=== PATIENT | female | born 1950 | race Caucasian/White ===

== ENCOUNTER 2018-06-08 14:19 | Emergency (ER) | payer MEDICARE, MEDICAID ==
[~2018-06-08] VITALS: Ht 157.5 cm; Wt 85.0 kg
[~2018-06-08 14:19] MED LIST: TRAM50TA2 PO
[2018-06-08 14:23] VITALS: Ht 157.5 cm; Wt 85.0 kg
[2018-06-08] MEDS ORDERED: ONDANSETRON 4 MG INJ IV STA (16:17)
[2018-06-08] MEDS ORDERED: SOD CHLORIDE 0.9% 1,000 ML IV STA (16:17)
[2018-06-08] MEDS ORDERED: KETOROLAC 15 MG INJ IV STA (16:17)
--- NOTE | 2018-06-08 16:28 | ERD ---
ER Documentation Chief Complaint Chief Complaint HEADACHE X 1 MONTH ON AND OFF , VAG BLEED X 2 DAYS HPI 67 year old patient presents to the ED complaining of vaginal bleeding and headache. Patient states she suffers from similar type headaches throughout the past year. She has visited the ED before for the same complaint and received a CT which did not show hemorrhage or other significant acute abnormalities. She currently describes a pain of 6/10. She denies any change of vision, confusion, or any weakness. She also states that she has had abdominal and pelvic pain for the last 4 days. Yesterday she noted the toilet was red from what she believed was blood. She denies any blood in the urine, white or other colored vaginal discharge, new sexual partners, and vaginal pain. She also states that she has had some urinary frequency. She is postmenopausal. No other symptoms reported at this time. ROS All systems reviewed and are negative except as per history of present illness. Medications Home Meds Active Scripts Ibuprofen* (Motrin*) 400 Mg Tab, 400 MG PO Q6, #30 TAB Prov:GUY ETIENNE PA-C 06/08/18 Tramadol HCl (Tramadol HCl) 50 Mg Tablet, 50 MG PO Q6 PRN for PAIN, #20 TAB Prov:TRAVIS BECKETT 03/23/16 Allergies Allergies: Coded Allergies: No Known Allergy (Unverified , 03/23/16) PMhx/Soc History of Surgery: No Anesthesia Reaction: No Hx Neurological Disorder: No Hx Respiratory Disorders: No Hx Cardiac Disorders: No Hx Psychiatric Problems: No Hx Miscellaneous Medical Probl: Yes (arthritis) Hx Alcohol Use: No Hx Substance Use: No Hx Tobacco Use: No FmHx Family History: No diabetes Physical Exam Vitals Vital Signs Date Temp Pulse Resp B/P (MAP) Pulse Ox O2 O2 Flow FiO2 Time Delivery Rate 06/08/18 98.2 76 18 134/60 99 14:23 (84) Physical Exam Const: No acute distress Head: Atraumatic Eyes: Normal Conjunctiva ENT: Normal External Ears, Nose and Mouth. Neck: Full range of motion. No meningismus. Resp: Clear to auscultation bilaterally Cardio: Regular rate and rhythm, no murmurs Abd: Soft, normal bowel sounds. tender to palpation at the mid and right groin. Skin: No petechiae or rashes Back: No midline or flank tenderness Ext: No cyanosis, or edema Neur: Awake and alert Psych: Normal Mood and Affect Result Diagram: 06/08/18 1713 06/08/18 1713 Results 24 hrs Laboratory Tests Test 06/08/18 16:30 06/08/18 17:13 Urine Color YELLOW Urine Clarity SLIGHTLY CLOUDY Urine pH 6.0 Urine Specific [place] 1.012 Urine Ketones TRACE mg/dL Urine Nitrite NEGATIVE mg/dL Urine Bilirubin NEGATIVE mg/dL Urine Urobilinogen NEGATIVE mg/dL Urine Leukocyte Esterase NEGATIVE Vielka/ul Urine Microscopic RBC 4 /HPF Urine Microscopic WBC 4 /HPF Urine Squamous Epithelial Cells FEW /HPF Urine Amorphous Crystals FEW /HPF Urine Mucus FEW /HPF Urine Hemoglobin NEGATIVE mg/dL Urine Glucose NEGATIVE mg/dL Urine Total Protein NEGATIVE mg/dl White Blood Count 9.1 10^3/ul Red Blood Count 4.65 10^6/ul Hemoglobin 12.9 g/dl Hematocrit 40.0 % Mean Corpuscular Volume 86.0 fl Mean Corpuscular Hemoglobin 27.7 pg Mean Corpuscular Hemoglobin Concent 32.3 g/dl Red Cell Distribution Width 13.3 % Platelet Count 307 10^3/UL Mean Platelet Volume 9.0 fl Immature Granulocytes % 0.300 % Neutrophils % 62.3 % Lymphocytes % 30.9 % Monocytes % 5.1 % Eosinophils % 1.1 % Basophils % 0.3 % Nucleated Red Blood Cells % 0.0 /100WBC Immature Granulocytes # 0.030 10^3/ul Neutrophils # 5.6 10^3/ul Lymphocytes # 2.8 10^3/ul Monocytes # 0.5 10^3/ul Eosinophils # 0.1 10^3/ul Basophils # 0.0 10^3/ul Nucleated Red Blood Cells # 0.0 10^3/ul Prothrombin Time 13.0 Sec Prothrombin Time Ratio 1.0 INR International Normalized Ratio 0.97 Activated Partial Thromboplast Time 28.2 Sec Sodium Level 139 mmol/L Potassium Level 4.0 mmol/L Chloride Level 102 mmol/L Carbon Dioxide Level 30 mmol/L Anion Gap 7 Blood Urea Nitrogen 13 mg/dl Creatinine 0.63 mg/dl Est Glomerular Filtrat Rate mL/min > 60 mL/min Glucose Level 98 mg/dl Calcium Level 9.5 mg/dl Total Bilirubin 0.4 mg/dl Direct Bilirubin 0.00 mg/dl Indirect Bilirubin 0.4 mg/dl Aspartate Amino Transf (AST/SGOT) 36 IU/L Alanine Aminotransferase (ALT/SGPT) 31 IU/L Alkaline Phosphatase 89 IU/L Total Protein 8.4 g/dl Albumin 4.4 g/dl Globulin 4.00 g/dl Albumin/Globulin Ratio 1.10 Lipase 122 U/L Current Medications Medications Dose Sig/Mike Start Time Status Last (Trade) Ordered Route PRN Stop Time Admin Dose Reason Admin Sodium 1,000 ml @ Q1H STAT 06/08/18 DC 06/08/18 Chloride 1,000 mls/hr IV 16:17 17:10 06/08/18 17:16 Ondansetron 4 mg ONCE STAT 06/08/18 DC 06/08/18 HCl (Zofran IV 16: 17:09 Inj) 06/08/18 16:19 Ketorolac 15 mg ONCE STAT 06/08/18 DC 06/08/18 Tromethamine IV 16: 17:09 (Toradol) 06/08/18 16:19 [place] [id number] Radiology Main Line: [phone] DIAGNOSTIC IMAGING REPORT Patient: FRANDY MCDOWELL : 1950 Age: 67 Sex: F MR #: [id number] DOS: 06/08/18 0000 Ordering MD: GUY ETIENNE PA-C Location: [facility] Room/Bed: PROCEDURE: US Non-OB Pelvis. CLINICAL INDICATION: Vaginal bleeding, pelvic pain. History of bilateral oophorectomy. TECHNIQUE: Multiple sonographic images of the pelvis were obtained utilizing a transabdominal and endovaginal technique. The images were reviewed on a PACS workstation. COMPARISON: None. FINDINGS: The uterus is visualized and measures 6.2 x 3.0 x 3.4 cm. The endometrium measures 7 mm in thickness. There is an 8 mm intramural fibroid in the lower uterine segment. There are Nabothian cysts in the cervix. A 5 mm simple cyst in the region of the lower uterine segment endometrial canal might also represent a cervical Nabothian cyst. A small amount of fluid is seen in the endocervical canal, probably blood. The ovaries are not visualized. No adnexal masses are noted. There is no evidence of free fluid. IMPRESSION: Mildly thickened endometrium for a postmenopausal patient (7 mm). Endometrial biopsy should be considered. Small amount of fluid in the endocervical canal, probably blood. 8 mm intramural fibroid in the lower uterine segment. Simple cyst in the region of the lower uterine segment endometrial canal, possibly a cervical Nabothian cyst. The ovaries are not visualized, and have been resected per the provided history. RPTAT: HTAR .Billy Bella MD, MD Date Time Electronically viewed and signed by .Billy Bella MD, on 06/08/2018 17:48 .R/ CC: GUY ETIENNE PA-C [id number] [place] [id number] Radiology Main Line: [phone] DIAGNOSTIC IMAGING REPORT Patient: FRANDY MCDOWELL : 1950 Age: 67 Sex: F MR #: [id number] DOS: 06/08/18 1617 Ordering MD: GUY ETIENNE PA-C Location: [facility] Room/Bed: PROCEDURE: CT Abdomen and Pelvis without contrast. CLINICAL INDICATION: Abdominal pain. TECHNIQUE: CT scan of the abdomen and pelvis was performed on a multi-detector high-resolution CT scanner. The patient was scanned without contrast administration. Coronal and sagittal reformatted images were obtained from the axial source images. Images were reviewed on a high-resolution PACS workstation. The total exam CTDI equals 22 mGy and the total exam DLP equals 1233 mGy-cm. DICOM images are available. 3-D reconstructions were not performed. One or more of the following dose reduction techniques were utilized: 1.) Automated exposure control 2.) Adjustment of the mA +/- kV according to patient's size 3.) Use of iterative reconstruction technique. COMPARISON: None. FINDINGS: CT abdomen: Heart (where visible): Unremarkable. Lung bases: No evidence of pneumonia, mass, pleural effusion. Liver: Normal attenuation. No visible focal mass. Biliary ductal system: No evidence of significant dilatation. Gallbladder: No wall thickening, visible intraluminal stone, or pericholecystic inflammatory change. Pancreas: Unremarkable. Stomach: No identifiable focal mass or gross wall thickening. Spleen: No gross splenomegaly. Abdominal colon: Normal in caliber and course. Abdominal small bowel: Normal in caliber, course, and mucosal pattern. Adrenal glands: No visible masses. Right Kidney: Normal in size and contour without focal mass or collecting system dilatation. Numerous nonobstructing punctate papillary calculi. Left kidney: Normal in size and contour without focal mass or collecting system dilatation. Numerous nonobstructing punctate papillary calculi. Abdominal aorta: Normal caliber. Lymph nodes: No significantly enlarged nodes. CT pelvis: Pelvic colon: Normal in caliber and course. No evidence of inflammatory change. Pelvic small bowel: Normal in caliber and course. Appendix: Identified. No evidence of inflammation. Urinary bladder: Normal in size and contour without visible wall thickening. Reproductive structures: The uterus and adnexa appear unremarkable. Abdominal wall: Small umbilical hernia containing only adipose tissue Bony structures included in the scan: No clinically significant abnormalities. There is a very small metallic foreign body in the soft tissues anterior to the L5-S1 disc on the right. IMPRESSION: 1. Bilateral nonobstructive nephrolithiasis. 2. Small umbilical hernia containing adipose tissue. 3. No evidence of bowel obstruction, bowel perforation, or focal inflammatory process. RPTAT:AAJJ Physician Robbin Date Time Electronically viewed and signed by Physician Robbin on 06/08/2018 18:17 GW/ CC: GUY ETIENNE PA-C [id number] Procedures/MDM 67-year-old female presenting to the emergency department complaining of pelvic pain and abdominal pain. The patient has also had some headache. Upon review of the patient's past medical records, she has been seen here for headache in the past and had a negative head CT. I did not feel that repeat imaging was indicated at this time due to patient's symptoms feeling similar to past headaches and her denying this being the worst headache of her life. The patient was administered IV Toradol in the department with good response. She is improved on reevaluation. Pelvic ultrasound did show a slightly thickened endometrium. Patient was informed of these results and she was advised to follow-up with her CFO physician within 24-48 hours for further evaluation. CT abdomen and pelvis without contrast showed no significant or emergent pathology. Full report of imaging studies interpreted by the radiologist may be viewed above. Medical decision making: Patient symptoms are likely secondary to thickened endometrium. Patient was advised that she may require endometrial biopsy. She understands and agrees with this information and her questions and concerns were addressed. Patient's neurologic symptoms have stabilized while they have been evaluated in the department and are appropriate for outpatient work up. No e/o meningitis, intracranial bleed, seizure, stroke. Patient's gastrointestinal symptoms have stabilized while in the department. No evidence of severe dehydration, sepsis, or surgical abdomen. Extensive discussion with family and patient that occult disease cannot be ruled out. 8 hour recheck for repeat abdominal exam is planned. Departure Diagnosis: Primary Impression: Multiple complaints Condition: GUY Gibson PA-C Jun 08, 2018 16:28
[2018-06-08] MEDS ORDERED: IBUP-1561 PO (18:22)
[2018-06-08 19:03] VITALS: BP 142/69; PULSE 59; RESP 16
== END 2018-06-08 19:08 | disposition home or self-care (01) ==
LOC: FTE 14:19
DX: R51 Headache (principal); R10.2 Pelvic and perineal pain
CPT/HCPCS: 74176; 76830; 76856; 80053; 81001; 83690; 85025; 85610; 85730; 96361; 96374; 96375; 99285; J1885; J2405; J7030; 81003

== ENCOUNTER 2018-07-20 12:42 | Emergency (ER) | payer OTHER ==
[~2018-07-20] VITALS: Ht 157.5 cm; Wt 87.8 kg
[~2018-07-20 12:42] MED LIST changes: +IBUP-1561 PO
[2018-07-20 12:51] VITALS: Ht 157.5 cm; Wt 87.8 kg
[2018-07-20] MEDS ORDERED: KETOROLAC 30 MG INJ IV STA (16:46)
[2018-07-20] MEDS ORDERED: SOD CHLORIDE 0.9% 1,000 ML IV STA (16:46)
--- NOTE | 2018-07-20 19:51 | ERD ---
ER Documentation Chief Complaint Chief Complaint pt c/o chest pain, head/back pain leg pain HPI 67-year-old female complaining of pain all over her body. This started about 1 week ago. She states that she has pain in her bones. Her pain is worse with walking in her legs. She denies any shortness of breath but complains of inter mittent dizziness. No fever, chills, nausea, vomiting, diarrhea. She also has a sore throat with a cough for the past few days as well. ROS All systems reviewed and are negative except as per history of present illness. Medications Home Meds Active Scripts Ibuprofen* (Motrin*) 400 Mg Tab, 400 MG PO Q6, #30 TAB Prov:GUY ETIENNE PA-C 06/08/18 Discontinued Scripts Tramadol HCl (Tramadol HCl) 50 Mg Tablet, 50 MG PO Q6 PRN for PAIN, #20 TAB Prov:TRAVIS BECKETT 03/23/16 Allergies Allergies: Coded Allergies: No Known Allergy (Unverified , 07/20/18) PMhx/Soc History of Surgery: Yes ( X2, bilateral oopherectomy) Anesthesia Reaction: No Hx Neurological Disorder: No Hx Respiratory Disorders: No Hx Cardiac Disorders: No Hx Psychiatric Problems: No Hx Miscellaneous Medical Probl: Yes (arthritis) Hx Alcohol Use: No Hx Substance Use: No Hx Tobacco Use: No Smoking Status: Never smoker FmHx Family History: No diabetes Physical Exam Vitals Vital Signs Date Temp Pulse Resp B/P (MAP) Pulse Ox O2 O2 Flow FiO2 Time Delivery Rate 07/20/18 89 20 92/44 (60) 97 Room Air 18:33 07/20/18 90 16 129/65 98 Room Air 16:04 (86) 07/20/18 97.8 98 18 132/60 98 12:51 (84) Physical Exam Const: No acute distress, nontoxic, well-appearing Head: Atraumatic Eyes: Normal Conjunctiva ENT: Normal External Ears, Nose and Mouth. Posterior oropharynx normal without exudates or erythema. Neck: Full range of motion. No meningismus. Resp: Clear to auscultation bilaterally Cardio: Regular rate and rhythm, no murmurs. 2+ distal pulses Abd: Soft, non tender, non distended. Normal bowel sounds Skin: No petechiae or rashes Back: No midline or flank tenderness Ext: No cyanosis, or edema. Diffuse muscular tenderness to palpation in the lower and upper extremities., Neur: Awake and alert, Oriented x3, cranial nerves intact, strength and sensations intact in all 4 extremities. Psych: Normal Mood and Affect Result Diagram: 07/20/18 1700 07/20/18 170 Results 24 hrs Laboratory Tests Test 07/20/18 17:00 White Blood Count 8.7 10^3/ul Red Blood Count 4.41 10^6/ul Hemoglobin 12.2 g/dl Hematocrit 37.5 % Mean Corpuscular Volume 85.0 fl Mean Corpuscular Hemoglobin 27.7 pg Mean Corpuscular Hemoglobin Concent 32.5 g/dl Red Cell Distribution Width 13.9 % Platelet Count 273 10^3/UL Mean Platelet Volume 9.6 fl Immature Granulocytes % 0.300 % Neutrophils % 63.6 % Lymphocytes % 25.4 % Monocytes % 7.8 % Eosinophils % 2.6 % Basophils % 0.3 % Nucleated Red Blood Cells % 0.0 /100WBC Immature Granulocytes # 0.030 10^3/ul Neutrophils # 5.5 10^3/ul Lymphocytes # 2.2 10^3/ul Monocytes # 0.7 10^3/ul Eosinophils # 0.2 10^3/ul Basophils # 0.0 10^3/ul Nucleated Red Blood Cells # 0.0 10^3/ul Urine Color YELLOW Urine Clarity SLIGHTLY CLOUDY Urine pH 5.0 Urine Specific [place] 1.024 Urine Ketones NEGATIVE mg/dL Urine Nitrite NEGATIVE mg/dL Urine Bilirubin NEGATIVE mg/dL Urine Urobilinogen 1+ mg/dL Urine Leukocyte Esterase NEGATIVE Vielka/ul Urine Microscopic RBC 3 /HPF Urine Microscopic WBC 6 /HPF Urine Squamous Epithelial Cells MODERATE /HPF Urine Bacteria FEW /HPF Urine Mucus FEW /HPF Urine Hemoglobin NEGATIVE mg/dL Urine Glucose NEGATIVE mg/dL Urine Total Protein NEGATIVE mg/dl Sodium Level 138 mmol/L Potassium Level 3.7 mmol/L Chloride Level 102 mmol/L Carbon Dioxide Level 27 mmol/L Anion Gap 9 Blood Urea Nitrogen 15 mg/dl Creatinine 0.62 mg/dl Est Glomerular Filtrat Rate mL/min > 60 mL/min Glucose Level 101 mg/dl Calcium Level 9.0 mg/dl Total Bilirubin 0.5 mg/dl Direct Bilirubin 0.00 mg/dl Indirect Bilirubin 0.5 mg/dl Aspartate Amino Transf (AST/SGOT) 34 IU/L Alanine Aminotransferase (ALT/SGPT) 27 IU/L Alkaline Phosphatase 109 IU/L Creatine Kinase 315 IU/L Total Protein 8.4 g/dl Albumin 4.3 g/dl Globulin 4.10 g/dl Albumin/Globulin Ratio 1.04 Current Medications Medications Dose Sig/Mike Start Time Status Last (Trade) Ordered Route PRN Stop Time Admin Dose Reason Admin Sodium 1,000 ml @ Q1H STAT 07/20/18 DC 07/20/18 Chloride 1,000 mls/hr IV 16:46 17:07 07/20/18 17:45 Ketorolac 30 mg ONCE STAT 07/20/18 DC 07/20/18 Tromethamine IV 16:46 17:08 (Toradol) 07/20/18 16:49 Procedures/MDM EMERGENT LABS AND DIAGNOSTIC STUDIES: Lab Results above were reviewed and interpreted by me. CBC: no anemia or evidence of infection CMP: No evidence of electrolyte abnormality, renal failure, hypoglycemia, liver failure, or biliary obstruction CK slightly elevated, consistent with possible myositis. UA: no evidence of infection or significant blood in urine Radiology Results as interpreted by Radiology below were reviewed by Maik Matos MD: Chest x-ray shows no acute abnormalities Initial Nursing notes reviewed. Previous Medical Records requested via the Electronic Health Record. EMERGENCY DEPARTMENT COURSE / MEDICAL DECISION MAKING: Patient is presenting with myalgias and arthralgias with no evidence of joint swelling on exam. I have a low suspicion for rhabdomyolysis. This seems like she is suffering from most likely a viral URI. Her CK was only slightly elevated, not consistent with rhabdomyolysis. She was treated with NSAIDs and IV fluids with improvement of her symptoms. I discussed her lab findings with her and recommended follow-up with her primary care doctor as she may need to see a emergency room technician if her pain continues. Patient's blood pressure was elevated (>120/80) but appears stable without evidence of hypertensive emergency or urgency. The patient was counseled about the risks of hypertension and urged to pursue outpatient monitoring and therapy within a week with their primary care physician. Departure Diagnosis: Primary Impression: Myalgia and myositis, unspecified Additional Impression: URI (upper respiratory infection) URI type: unspecified URI Qualified Codes: J06.9 - Acute upper respiratory infection, unspecified Condition: Stable Patient Instructions: Myalgias, Uri, Viral, No Abx (Adult) Additional Instructions: [place] brent anderson con ozuna medico primario en 2-3 knapp. Si esta empeorando regresa a la shahrzad de emergencias. JUANPABLO MATOS MD Jul 20, 2018 19:51
[2018-07-20 20:02] VITALS: BP 112/72; PULSE 85; RESP 21
[2018-07-20] MEDS ORDERED: FLUC150T PO (20:13)
== END 2018-07-20 20:27 | disposition home or self-care (01) ==
LOC: E/R 12:42
DX: M79.10 Myalgia, unspecified site (principal); J06.9 Acute upper respiratory infection, unspecified
CPT/HCPCS: 71045; 80053; 81001; 82550; 85025; 96374; 99284; J1885; J7030; 81003

== ENCOUNTER 2018-08-24 00:19 | Emergency (ER) | payer OTHER ==
[~2018-08-24] VITALS: Ht 152.4 cm; Wt 88.4 kg
[~2018-08-24 00:19] MED LIST changes: +FLUC150T PO; -TRAM50TA2 PO
[2018-08-24 00:24] VITALS: BP 131/64; PULSE 82; RESP 16; Ht 152.4 cm; Wt 88.4 kg
[2018-08-24] MEDS ORDERED: MECL12.574 PO (07:49)
[2018-08-24] MEDS ORDERED: D-ME473S2 PO (07:49)
--- NOTE | 2018-08-24 07:55 | ERD ---
ER Documentation Chief Complaint Chief Complaint head pain, ear pain, cough x1 month, twitches to face intermittently HPI 67-year-old female with no reported past medical surgical history presents with complaint of dry cough as well as intermittent dizziness over the past month. Cough initially productive of yellow phlegm some weeks ago but now dry. She describes daily bouts of dizziness which is worse when arising as well as with certain movements. With complaint of right ear pain as well. Denies discharge from the ear. She otherwise denies persistent headaches, nausea, vomiting, abdominal pain, shortness of breath, dyspnea, chest pain, urinary symptoms. Has not tried anything to treat her cough. Has upcoming follow-up with PMD per patient. Denies history of smoking. ROS All systems reviewed and are negative except as per history of present illness. Medications Home Meds Active Scripts Meclizine Hcl* (Antivert*) 12.5 Mg Tab, 12.5 MG PO Q6H PRN for DIZZINESS, #20 TAB Prov:ADITYA HAINES PA-C 08/24/18 Dextromethorphan Hb-Promethazine Hcl* (Promethazine DM* Syrup) 473 Ml Syrup, 5 ML PO Q6 PRN for COUGH for 7 Days, ML Prov:ADITYA HAINES PA-C 08/24/18 Fluconazole* (Diflucan*) 150 Mg Tablet, 150 MG PO ONCE, #1 TAB Prov:JUANPABLO YOUNG MD 07/20/18 Ibuprofen* (Motrin*) 400 Mg Tab, 400 MG PO Q6, #30 TAB Prov:GUY ETIENNE PA-C 06/08/18 Allergies Allergies: Coded Allergies: No Known Allergy (Unverified , 07/20/18) PMhx/Soc Medical and Surgical Hx: pt denies Medical Hx Anesthesia Reaction: No Hx Neurological Disorder: No Hx Respiratory Disorders: No Hx Cardiac Disorders: No Hx Psychiatric Problems: No Hx Miscellaneous Medical Probl: Yes (arthritis) Hx Alcohol Use: No Hx Substance Use: No Hx Tobacco Use: No Smoking Status: Never smoker FmHx Family History: No diabetes, No coronary disease, No other Physical Exam Vitals Vital Signs Date Temp Pulse Resp B/P (MAP) Pulse Ox O2 O2 Flow FiO2 Time Delivery Rate 08/24/18 99.1 82 16 131/64 96 00:24 (86) Physical Exam I have reviewed the triage vital signs. Const: Well nourished, well developed, appears stated age Eyes: PERRL, no conjunctival injection HENT: NCAT, Neck supple without meningismus. Bilateral ear canals no exudates, swelling or prominent erythema, eardrum intact bilaterally CV: RRR, Warm, well-perfused extremities RESP: CTAB, Unlabored respiratory effort GI: soft, non-tender, non-distended, no masses MSK: No gross deformities appreciated Skin: Warm, dry. No rashes Neuro: grossly non focal Psych: Appropriate mood and affect. Procedures/MDM 67-year-old healthy female who comes with complaint of cough as well as dizziness. Pt presents with coughing history suggestive of acute bronchitis. >5days of cough, without evidence of PNA, common cold, or asthma. Unlikely pertussis, sinusitis, or FB irritation/obstruction. She complains of intermittent dizziness per history likely secondary to benign positional vertigo. ED Course: Chest x-ray without evidence of pneumonia. Will discharge with meclizine, promethazine for cough, patient instructed to follow-up PMD regarding further care and has upcoming appointment. 1.HR <100 2.RR <24 3.Temperature <38 (100.4) 4.Exam findings not consistent with focal consolidation Pt low risk for PNA, plan to DC home w PCP follow up in next 3 days and ED return precautions discussed. Pt educated regarding potential side effects, cost, and possibility for microbial resistance with antibiotics, hence why they are not receiving them. DISPOSITION PLAN: We discussed follow up with the patient's primary care doctor within 24 to 48 hours. Patient counseled regarding my diagnostic impression and care plan. Prior to discharge all questions answered. Pt agrees with treatment plan and understands strict return precautions. Precautionary instructions provided including instructions to return to the ER if not improving or for any worsening or changing symptoms or concerns. Disclaimer: Inadvertent spelling and grammatical errors are likely due to EHR/dictation software use and do not reflect on the overall quality of patient care. Also, please note that the electronic time recorded on this note does not necessarily reflect the actual time of the patient encounter. Departure Diagnosis: Primary Impression: Cough Additional Impression: Dizziness Condition: Stable Patient Instructions: Inner Ear Problems: Causes of Dizziness (Vertigo), Dizziness (Vertigo) and Balance Problems: Ensuring Your Safety, Bronchitis, No Antibiotic (Adult), Cough, Chronic, Uncertain Cause, (Adult) Referrals: [facility] YOU HAVE RECEIVED A MEDICAL SCREENING EXAM AND THE RESULTS INDICATE THAT YOU DO NOT HAVE A CONDITION THAT REQUIRES URGENT TREATMENT IN THE EMERGENCY DEPARTMENT. FURTHER EVALUATION AND TREATMENT OF YOUR CONDITION CAN WAIT UNTIL YOU ARE SEEN IN YOUR DOCTORS OFFICE WITHIN THE NEXT 1-2 DAYS. IT IS YOUR RESPONSIBILITY TO MAKE AN APPOINTMENT FOR FOLOW-UP CARE. IF YOU HAVE A PRIMARY DOCTOR --you should call your primary doctor and schedule an appointment IF YOU DO NOT HAVE A PRIMARY DOCTOR YOU CAN CALL OUR PHYSICIAN REFERRAL HOTLINE AT IF YOU CAN NOT AFFORD TO SEE A PHYSICIAN YOU CAN CHOSE FROM THE FOLLOWING [facility] [address] [facility] [address] [facility] [facility] [address] [facility] [address] [facility] [facility] [address] [facility]. [facility]. [address] Additional Instructions: Call your primary care doctor TOMORROW for an appointment during the next 2-3 days.See the doctor sooner or return here if your condition worsens before your appointment time. ADITYA HAINES PA-C August 24, 2018 07:55
== END 2018-08-24 08:41 | disposition home or self-care (01) ==
LOC: FTE 00:19
DX: R05 Cough (principal); R42 Dizziness and giddiness
CPT/HCPCS: 71046